=== PATIENT | female | born 1935 | race Caucasian/White ===

== ENCOUNTER 2024-07-01 11:02 | Emergency (ER) | payer MEDICARE, OTHER ==
[~2024-07-01] VITALS: Ht 165.1 cm; Wt 42.9 kg
[~2024-07-01 11:02] MED LIST: AMLO5TAB16 PO; ASPI-1071 PO; ATOR20TA PO; BRIM5DRO6 EACHEYE; LEVO88TA7 PO; LISI5TAB22 PO
[2024-07-01 13:26] VITALS: BP 124/78; PULSE 74; RESP 16; TEMP 98.1; O2SAT 99
[2024-07-01] MEDS ORDERED: DOCU100C41 PO (13:31)
== END 2024-07-01 13:55 | disposition home or self-care (01) ==
LOC: ER 11:03
DX: K64.4 Residual hemorrhoidal skin tags (principal); Z79.82 Long term (current) use of aspirin
CPT/HCPCS: 99282